=== PATIENT | male | born 2000 | race Caucasian/White ===

== ENCOUNTER 2022-03-15 21:57 | Emergency (ER) | payer SELFPAY ==
[2022-03-15 22:11] VITALS: BP 125/65; PULSE 67; RESP 18; TEMP 36.3; O2SAT 99; BMI 25.1
== END 2022-03-16 04:17 | disposition left against medical advice (07) ==
PROVIDERS: Emergency Provider Emergency Medicine
DX: M79.651 Pain in right thigh (principal)
CPT/HCPCS: 99281

== ENCOUNTER 2022-03-17 19:13 | Emergency (ER) | payer MEDICAID, SELFPAY ==
[2022-03-17 19:37] VITALS: BP 130/67; PULSE 66; RESP 16; TEMP 36.6; O2SAT 99; BMI 25.1
== END 2022-03-18 01:55 | disposition left against medical advice (07) ==
LOC: HO.ED 03-18 01:52
PROVIDERS: Emergency Provider Emergency Medicine
DX: L02.214 Cutaneous abscess of groin (principal)
CPT/HCPCS: 99281

== ENCOUNTER 2025-04-06 22:42 | Emergency (ER) | payer MEDICAID, SELFPAY ==
[2025-04-06 22:55] VITALS: BP 141/65; PULSE 76; RESP 16; TEMP 37.3; O2SAT 100; BMI 25.5
[2025-04-06 23:17] LABS: Appearance Urine Clear; Glucose Urine UA Negative (Negative); PH 6.5 (5.0-9.0); Specific Gravity - Urine 1.015 (1.005-1.025); UMIC TRIGGER UACC YES
[2025-04-06 23:20] LABS: UACC Culture Trigger YES
--- OUTSIDE RECORDS SUMMARY | 2025-04-06 23:27 | XMS_ITS | Clinical Summary ---
Author Organization [employer] Address [address] [place] [address] [address] [place] [address] Care Team Providers Care Organization Development Consultant Name Role Phone Unavailable Primary Care Provider Unavailabl e Social History Tobacco Use Types Packs/Day Years Used Date Smoking Tobacco: Never Assessed Sex and Gender Information Value Date Recorded Sex Assigned at Male 04/08/2022 10:40 AM EDT Legal Sex Male 10:40 AM EDT Gender Identity Male 04/08/2022 10:40 AM EDT Sexual Orientation Don't know 04/08/2022 10 :40 AM EDT Last Filed Vital Signs Vital Sign Reading Time Taken Comments Blood Pressure 134/64 03/21/2022 12:10 AM EDT Pulse 68 03/21/2022 12:10 AM EDT Temperature - - Respiratory Rate - - Oxygen Saturation - - Inhaled Oxygen Concentration - - Weight 81.2 kg (179 lb) 03/21/2022 12:10 AM EDT Height 175.3 cm (5' 9 ) 03/21/2022 12:10 AM EDT Body Mass Index 26.43 03/21/2022 12:10 AM EDT Plan of Treatment Health Maintenance Due Date Last Done Comments Chlamydia and Gonorrhea Screening 2002 Depression Screening 2002 HIV Screening 2002 Disability Screening 2002 Alcohol/Substance Use Screening 2014 Tobacco Screening 2014 Family Planning (PISQ) 2017 HPV Vaccines (1 - Male 3-dos e series) 2017 Meningococcal B Vaccine (1 o f 2 - Standard) 2018 Hepatitis C Screening 2020 DTaP/Tdap/Td Vaccines (1 - Tdap) 2021 Hepatitis B Vaccines (1 of 3 - 19+ 3-dose series) 2021 COVID-19 Vaccine (1 - 2023-2 5 season) 2025 Influenza Vaccine (#1) 2025 Zoster Vaccines (1 of 2) 2052 RSV Patients and Pa tients Aged 60 years or older (1 - 1-dose 75+ series) 2077 HIB Vaccines Aged Out No longer eligi ble based on patient's age to complete this topic Hepatitis A Vaccines Aged Out No long er eligible based on patient's age to complete this topic IPV Vaccines Aged Out No longer eligi ble based on patient's age to complete this topic Meningococcal Vaccine Aged Out No debra sharon eligible based on patient's age to complete this topic Pneumococcal Vaccine: Pediat rics (0 to 5 Years) and At-Risk Patients (6 to 49) Years Aged Out No longer eligible b ased on patient's age to complete this topic RSV under 20 months Aged Out No longe r eligible based on patient's age to complete this topic Rotavirus Vaccines Aged Out No longer eligible based on patient's age to complete this topic
[2025-04-06 23:53] VITALS: BP 105/67; PULSE 75; RESP 16; TEMP 36.5; O2SAT 98
--- NOTE | 2025-04-07 00:32 | ED.MALEGU ---
HPI - Male Genitourinary General Chief complaint: Urogenital-Male Stated complaint: STI? Time Seen by Provider: 04/06/25 23:41 Source: patient Limitations: no limitations History of Present Illness ED Provider: Ana Luisa Robles PA-C HPI Narrative: 24-year-old male presents with dysuria x2 days. Pain described as burning with urination, with pus draining from his penis. Patient states it has been difficult to urinate secondary to discomfort. Denies abdominal pain, back pain, nausea vomiting or fever. Denies testicular pain or swelling no redness of the testicles. Patient currently denies risk for STD. Denies new lesions over penis or scrotum Related Data Allergies Allergy/AdvReac Type Severity Reaction Status Date / Time NSAIDS (Non-Steroidal Allergy Hives Verified 04/07/25 00:01 Anti-Inflamma Review of Systems Review of Systems: Yes all other systems are reviewed and are negative Constitutional: Constitutional: Denies fatigue and Denies fever(s) Gastrointestinal: Gastrointestinal: Denies abdominal pain Genitourinary: Genitourinary: Reports dysuria, Denies flank pain, Reports penile discharge, Denies scrotal swelling and Denies testicular pain Musculoskeletal: Musculoskeletal: Denies back pain Endocrine: Endocrine: Denies fatigue PMFSH Past Medical History Attestation statement: The following information was validated with the patient. Social History Social History Smoked in Last 30 Days: No Use of substances other than those prescribed or required for medical reasons: No Advance Directives: No Physical Exam Vital Signs: Vital Signs: Last Vital Signs Temp 97.7 F 04/06/25 23:53 Pulse 75 04/06/25 23:53 Resp 16 04/06/25 23:53 BP 105/67 04/06/25 23:53 Pulse Ox 98 04/06/25 23:53 O2 Del Method Room Air 04/06/25 23:53 BMI result Body Mass Index 25.5 Const: Other: Alert well-appearing Orientation/consciousness: patient oriented x3 Resp: Effort & Inspection: normal respiratory effort Cardio: Other: Normal peripheral perfusion : Other: Deferred Skin: Other: Warm dry no rash Neuro: General: patient oriented x3, gait normal, no focal motor deficits and CN's II-XI intact bilaterally Psych: Other: Cooperative Medical Decision Making Medical Decision Making [facility] Narrative: 24-year-old male presents with dysuria x2 days. Pain described as burning with urination, with pus draining from his penis. Patient states it has been difficult to urinate secondary to discomfort. Denies abdominal pain, back pain, nausea vomiting or fever. Denies testicular pain or swelling no redness of the testicles. Patient currently denies risk for STD. Denies new lesions over penis or scrotum No chronic issues History: Per patient I have considered the following differential diagnoses: Urethritis, orchitis, epididymitis, UTI Plan: Urinalysis completed, GC chlamydia pending, when I asked the patient if he has risk for STD, he states ?not really?. His partner is at bedside. He explained to him that given he is symptomatic, it would be a good idea to empirically treat him, he is in agreement. No indication for imaging. I told him he will be contacted by someone at our facility with the results. Or he could see results on the patient portal. I have independently reviewed the following tests: Labs: Urine reveals white blood cells, GC chlamydia pending Differential Diagnosis Differential Diagnoses: The differential diagnosis associated with the presentation includes See medical decision-making Admission/Observation Consideration of admission/observation: Escalation of care including admission/observation considered Not applicable Lab Data MDM Lab Attestation statement: I reviewed the patient's lab results. Labs: Lab Results 04/06/25 Range/Units 23:11 Urine Color Yellow Urine Appearance Clear Urine pH 6.5 (5.0-9.0) Ur Specific [place] 1.015 (1.005-1.025) Urine Protein Negative (Neg-Trace) mg/dL Urine Glucose (UA) Negative (Negative) mg/dL Urine Ketones Negative (Negative) mg/dL Urine Blood Negative (Negative) Urine Nitrite Negative (Negative) Ur Leukocyte Esterase Small (1+) H (Negative) Urine RBC 0-2 (0-2) /HPF Urine WBC 11-20 H (0-5) /HPF Ur Squamous Epith Cells 0-2 (0-2) /HPF Urine Bacteria None Seen (None Seen) Hyaline Casts 0-2 (0-2) /LPF Discharge Plan Discharge Clinical Impression: Urethritis Patient Disposition: Home, Self-Care Instructions: Urethritis (ED) Additional Instructions: You are being empirically treated for urethritis, the common organisms that cause this type of infection are gonorrhea and/or chlamydia. You have testing pending, you will be contacted by someone at the facility with the results. You can also access results on the patient portal. You should abstain from sexual intercourse until any sexual partners that you have are tested and treated as well. Stand Alone Forms: Work/School Release Print Language: [place]
[2025-04-07] MEDS: cefTRIAXone sodium 250 MG, Lidocaine HCl 1 % MPF 0.9 ML IM (00:50)
[2025-04-07 06:19] LABS: CT PCR Urine DETECTED (Not Detect.); NG PCR Urine DETECTED (Not Detect.)
== END 2025-04-07 01:12 | disposition home or self-care (01) ==
PROVIDERS: Emergency Provider Emergency Medicine Emergency Medical Services
DX: A54.9 Gonococcal infection, unspecified (principal); A74.9 Chlamydial infection, unspecified; N34.2 Other urethritis; R30.0 Dysuria
CPT/HCPCS: 81001; 87086; 87088; 87186; 87491; 87591; 96372; 99284; J0696; J2003